=== PATIENT | female | born 1995 | race Caucasian/White ===

== ENCOUNTER 2021-07-13 19:15 | Emergency (ER) | payer OTHER ==
[~2021-07-13 19:15] MED LIST: BACTRIM DS TAB1 EACH PO; IMODIUM2 MG PO; ZOFRAN4 MG PO
[2021-07-13] MEDS ORDERED: CEPHALEXIN500 M1 PO (21:11)
== END 2021-07-13 21:25 | disposition home or self-care (01) ==
LOC: FER 19:15
DX: S61.012A Laceration without foreign body of left thumb without damage to nail, initial encounter (principal); W26.0XXA Contact with knife, initial encounter; Y92.009 Unspecified place in unspecified non-institutional (private) residence as the place of occurrence of the external cause
CPT/HCPCS: 73140

== ENCOUNTER 2021-09-03 20:42 | Emergency (ER) | payer OTHER ==
[~2021-09-03 20:42] MED LIST changes: +CEPHALEXIN500 M1 PO
[2021-09-03 21:29] LABS: BASOPHIL 0.5 % (0-2); EOSINOPHIL 2.9 % (0-5); HCT 37.7 % (37.0-47.0); HGB 12.3 g/dl (12.5-16.0); LYMPHOCYTE 48.7 % (15-48); MCH 27.5 pg (25.0-31.0); MCHC 32.6 g/dL (32.0-36.0); MCV 84.2 fL (78.0-100.0); MONOCYTE 8.1 % (0-12); MPV 9.8 fL (6.0-9.5); NEUTROPHIL 39.6 % (41-80); NRBC 0; PLT 261 K/uL (150-400); RBC 4.48 M/uL (4.20-5.40); RDW 12.4 % (11.5-14.0); WBC 9.3 K/uL (4.0-10.5)
[2021-09-03 21:48] LABS: ALBUMIN 3.5 g/dL (3.4-5.0); BILIRUBIN - TOTAL 0.2 mg/dL (0.2-1.0); BUN/CREAT RATIO (CALC) 15.7 RATIO; CREATININE 0.83 mg/dL (0.51-0.95); GLOBULIN (CALCULATION) 3.9 g/dL; TOTAL PROTEIN 7.4 g/dL (6.4-8.2)
[2021-09-03 23:33] LABS: BILIRUBIN NEGATIVE (NEGATIVE); BLOOD NEGATIVE Ery/uL (NEGATIVE); CLARITY CLEAR (CLEAR); COLOR YELLOW (YELLOW); GLUCOSE (U) NORMAL (NORMAL); LEUKOCYTES NEGATIVE Leu/uL (NEGATIVE); NITRITE NEGATIVE (NEGATIVE); PROTEIN NEGATIVE (NEGATIVE); SPECIFIC GRAVITY 1.015 (1.001-1.030); UROBILINOGEN 0.2 mg/dL (0.2-1.0); pH 7.5 (5.0-9.0)
== END 2021-09-04 00:19 | disposition home or self-care (01) ==
LOC: FER 20:42
PROVIDERS: Emergency Medicine Emergency Medical Services
DX: N83.201 Unspecified ovarian cyst, right side (principal); Z88.5 Allergy status to narcotic agent; Z88.6 Allergy status to analgesic agent; Z88.1 Allergy status to other antibiotic agents
CPT/HCPCS: 36415; 76830; 80053; 81003; 83690; 85025; J1885; J7030; Q9967